=== PATIENT | male | born 2000 | race Caucasian/White ===

== ENCOUNTER 2022-08-10 23:14 | Emergency (ER) | payer MEDICAID, SELFPAY ==
[2022-08-10 23:16] VITALS: BP 154/100; PULSE 80; RESP 16; TEMP 36.9; O2SAT 99; BMI 20.3
--- NOTE | 2022-08-10 23:36 | PC.NURSE ---
PT REPORTS THAT HE SMOKES MARIJUANA.
--- NOTE | 2022-08-10 23:37 | PC.NURSE ---
SWABS REQUESTED FROM LAB.
[2022-08-10 23:56] LABS: Microscopic, Urine URINE MICROSCOPIC (MICROSCOPIC)
[2022-08-10 23:58] LABS: Appearance,Urine SL CLOUDY (Clear); Bilirubin,Urine Negative (Negative); Blood, Urine Negative (Negative); Color,Urine YELLOW (Yellow); Glucose,Urine (UA) Negative (Negative); Ketones,Urine Negative (Negative); Leukocyte Esterase,Urine Negative (Negative); Nitrate,Urine Negative (Negative); PH,Urine 7.5 (5.0-8.5); Protein,Urine Negative (Negative); Urobilinogen,Urine 0.2 EU/dl (0.2)
[2022-08-11 00:14] LABS: Squamous Epithelial Cell,Urine Occasional #/hpf (0-5); WBC,Urine Occasional #/hpf (0-3)
--- NOTE | 2022-08-11 00:55 | HMH.EDUROGM ---
Discharge Plan Disposition Patient Disposition: Home, Self-Care Prescriptions Prescriptions: New minocycline 100 mg Capsule 100 mg PO BID Qty: 20 0RF Referrals Follow up/Referrals: Provider,MD Chace [Primary Care Provider] - See instructions Casper Vega MD [Staff Physician] - See instructions Clinical Impressions Clinical Impression: Urethritis Instructions Patient Instructions: DI for Urinary Tract Infection (UTI), DI for Urinary Tract Infection in Children, Facts About Sexually Transmitted Infections Discharge ED Provider: Reinaldo Livingston Male Urogenital HPI General Chief complaint: Urogenital-Male Stated complaint: Discharge from private area Time Seen by Provider: 08/11/22 00:55 Mode of Arrival: Ambulatory Source of Information: Patient, Parent(s) and Medical Record Limitations: No Limitations Description of Symptoms (Recalled from ER Triage Doc. by RN): PT REPORTS 6 MONTHS AGO HE HAD PUSS/DRAINAGE FROM HIS PENIS. PT REPORTS HE HAS QUIT HAVING DRAINAGE AND NOW HAS FOUL SMELLING URINE. History of Present Illness HPI Narrative: pt about six months ago has yellow d/c after coitus - heterosexual - lasted a few days and now has smelly urine - no penile lesions or d/c Complaint: possible STD exposure Onset (ago): week(s) Duration: intermittent Severity: moderate Reports denies other symptoms Related Data Sexually active: Yes Previous Rx's Medication Instructions Recorded minocycline 100 mg capsule 100 mg PO BID #20 caps 08/11/22 Allergies Allergy/AdvReac Type Severity Reaction Status Date / Time No Known Allergies Allergy Unverified 11/07/17 15:23 PFSH PFSH Medical History (Updated 08/11/22 @ 01:18 by Reinaldo Livingston MD) Anxiety Depression Hypertension Social History (Updated 08/10/22 @ 23:34 by Sonia Moise RN) Smoking Status: Current every day smoker alcohol intake: never current occupational status: employed Travel in the last 8 weeks: None ROS Obtained: Yes All systems reviewed & no additional complaints except as documented Constitutional Constitutional: Denies fever(s) Eyes Eyes: Denies diplopia ENT Ears, Nose, Mouth, and Throat: Denies nasal discharge Cardiovascular Cardiovascular: Denies chest pain with activity Respiratory Respiratory: Denies cough Gastrointestinal Gastrointestingal: Denies dyspepsia Genitourinary Male Genitourinary: Reports as per HPI, Denies flank pain, Denies genital lesions, Denies penile discharge, Denies scrotal swelling and Denies testicular mass Musculoskeletal Musculoskeletal: Denies arthralgias Integumentary/Breasts Skin/Breast: Denies rash Neurologic Neurologic: Denies focal weakness Physical Exam General General appearance: alert and in no apparent distress Head Head exam: normocephalic Eye Eye exam: Present PERRL and EOMI ENT ENT exam: Present mucous membranes moist Neck Neck exam: Present trachea midline Respiratory Respiratory exam: Present normal lung sounds bilaterally; Absent respiratory distress Cardiovascular Cardiovascular exam: Present regular rate; Absent systolic murmur Abdominal Exam Abdominal exam: Present soft exam: Present circumcised; Absent testicular tenderness, urethral discharge or scrotal swelling Expanded Exam exam: Absent penile swelling, lesions, inguinal hernia or inguinal lymphadenopathy Extremities Exam Extremities exam: Present full ROM Neurological Exam Neurological exam: Present alert, oriented X3 and CN II-XII intact Skin Skin exam: Absent rash Medical Decision Making Medical Records Medical records reviewed: Yes I reviewed the patient's medical records. Maksim Inquiry Pt receiving controlled substance: No Vital Signs: 08/10/22 23:16 Temperature 98.4 F Temperature Source Oral Pulse Rate [Left Radial] 80 Respiratory Rate 16 Blood Pressure [Right Arm] 154/100 H Blood Pressure Mean [Right Arm] 118 Blood Pressure Source [Right Arm] Automatic Cuff
[2022-08-11 01:28] VITALS: BP 140/89; PULSE 89; RESP 16; TEMP 36.7; O2SAT 99
== END 2022-08-11 01:39 | disposition home or self-care (01) ==
PROVIDERS: Emergency Provider Emergency Medicine
DX: N34.2 Other urethritis (principal)
CPT/HCPCS: 81001; 96372; 99283; J0696